=== PATIENT | male | born 1960 | race Asian ===

== ENCOUNTER 2017-11-16 08:13 | Outpatient (CLI) | payer OTHER | END 2017-11-16 08:53 | disposition home or self-care (01) | LOC: LAB 08:13 | DX: I10 Essential (primary) hypertension (principal); R73.01 Impaired fasting glucose; E78.4 Other hyperlipidemia; E55.9 Vitamin D deficiency, unspecified; R53.81 Other malaise ==

== ENCOUNTER → 2019-09-11 11:26 | Outpatient (CLI) | payer OTHER | END | disposition home or self-care (01) | LOC: LAB 11:26 | DX: R73.01 Impaired fasting glucose (principal); E78.49 Other hyperlipidemia; E55.9 Vitamin D deficiency, unspecified; I10 Essential (primary) hypertension; R53.81 Other malaise; Z83.3 Family history of diabetes mellitus ==

== ENCOUNTER → 2020-11-21 10:27 | Outpatient (CLI) | payer OTHER | END | disposition home or self-care (01) | LOC: LAB 10:27 | PROVIDERS: ATTEND Family Medicine | DX: R53.81 Other malaise (principal); I10 Essential (primary) hypertension; R73.03 Prediabetes; E78.49 Other hyperlipidemia ==

== ENCOUNTER 2021-03-26 09:02 | Outpatient (CLI) | payer OTHER | END 2021-03-26 09:05 | disposition home or self-care (01) | LOC: LAB 09:02 | PROVIDERS: ATTEND Family Medicine | DX: I10 Essential (primary) hypertension (principal); E78.49 Other hyperlipidemia; R73.01 Impaired fasting glucose ==

== ENCOUNTER 2021-10-09 08:51 | Outpatient (CLI) | payer OTHER | END 2021-10-09 08:52 | disposition home or self-care (01) | LOC: LAB 08:51 | PROVIDERS: ATTEND Family Medicine | DX: E78.49 Other hyperlipidemia (principal); I10 Essential (primary) hypertension; R73.01 Impaired fasting glucose; N40.1 Benign prostatic hyperplasia with lower urinary tract symptoms; R53.81 Other malaise ==

== ENCOUNTER 2024-03-22 12:04 | Outpatient (CLI) | payer OTHER | END 2024-03-22 12:07 | disposition home or self-care (01) | LOC: SONOGRAMA 12:04 | PROVIDERS: ATTEND Pathology Anatomic Pathology & Clinical Pathology | DX: D34 Benign neoplasm of thyroid gland (principal); E07.89 Other specified disorders of thyroid; E04.2 Nontoxic multinodular goiter ==